=== PATIENT | male | born 2000 | race African-American/Black ===

== ENCOUNTER 2019-12-29 14:20 | Emergency (ER) | payer BC, OTHER ==
[~2019-12-29] VITALS: Ht 175.3 cm; Wt 72.0 kg
[2019-12-29] MEDS ORDERED: ONDANSETRON HCL 4MG/2ML INJ IV STA (14:35)
[2019-12-29] MEDS ORDERED: FAMOTIDINE 20MG/2ML VIAL IV STA (14:35)
[2019-12-29] MEDS ORDERED: SODIUM CHLORIDE 0.9% 1,000 ML IV ONE (14:45)
[2019-12-29 15:17] LABS: BASOPHILS % 0.3 % (0.0-2.0); EOSINOPHILS % 0.1 % (0.0-5.0); HEMATOCRIT. 48.5 % (42.0-52.0); HEMOGLOBIN. 16.7 g/dL (14.0-18.0); LYMPHOCYTES % 15.8 % (20.0-50.0); MEAN CORPUSCULAR VOLUME 90.1 fL (80.0-94.0); MONOCYTES % 10.5 % (2.0-8.0); NEUTROPHILS % 73.3 % (40.0-76.0); PLATELET 301 x1000/uL (130-400); RED BLOOD CELL COUNT 5.38 mill/uL (4.7-6.1); RED CELL DISTRIBUTION WIDTH 14.7 % (11.6-14.6)
[2019-12-29 15:26] LABS: CHLORIDE 95 mEq/L (98-107)
[2019-12-29] MEDS ORDERED: KETOROLAC 30MG/ML VIAL IV ONE (15:30)
[2019-12-29 15:35] LABS: ETHANOL BLOOD < 10 mg/dL
[2019-12-29 15:41] LABS: INR 1.1; PROTHROMBIN TIME 11.4 sec (9.6-11.0)
[2019-12-29 15:44] LABS: CLARITY URINE CLEAR (CLEAR); COLOR URINE DARK YELLOW (YELLOW); KETONES URINE 1+ (NEGATIVE); LEUKOCYTE ESTERASE URINE 1+ (NEGATIVE); NITRITE URINE NEGATIVE (NEGATIVE); OCCULT BLOOD URINE NEGATIVE (NEGATIVE); PH URINE 5.5 (4.5-8.0); PROTEIN URINE 1+ (NEGATIVE); SPECIFIC GRAVITY URINE 1.027 (1.005-1.030)
[2019-12-29 16:03] LABS: *AMPHETAMINES SCREEN URINE NEGATIVE (NEGATIVE); *BARBITURATES SCREEN URINE NEGATIVE (NEGATIVE); *BENZODIAZEPINES SCREEN URINE NEGATIVE (NEGATIVE)
[2019-12-29 16:04] LABS: *COCAINE SCREEN URINE PRESUMTIVE POSITIVE (NEGATIVE); METHADONE URINE SCREEN NEGATIVE (NEGATIVE); OPIATES URINE SCREEN NEGATIVE (NEGATIVE); PHENCYCLIDINE URINE SCREEN NEGATIVE (NEGATIVE)
[2019-12-29 16:05] LABS: CANNABINOID URINE SCREEN PRESUMTIVE POSITIVE (NEGATIVE)
[2019-12-29 18:19] VITALS: BP 128/89
== END 2019-12-29 18:19 | disposition home or self-care (01) ==
LOC: ER 14:20
DX: R11.2 Nausea with vomiting, unspecified (principal); R10.13 Epigastric pain; F14.10 Cocaine abuse, uncomplicated; F12.10 Cannabis abuse, uncomplicated; E87.8 Other disorders of electrolyte and fluid balance, not elsewhere classified; J45.909 Unspecified asthma, uncomplicated
CPT/HCPCS: 36415; 80053; 80305; 80320; 81003; 83690; 85025; 85610; 93005; 96361; 96374; 96375; 99284; J1885; J2405; J3490; J7030; G0480

== ENCOUNTER 2021-11-02 16:38 | Emergency (ER) | payer OTHER ==
[~2021-11-02] VITALS: Ht 175.3 cm; Wt 75.0 kg
[2021-11-02 16:46] VITALS: BP 126/67
== END 2021-11-02 20:46 | disposition left against medical advice (07) ==
LOC: ER 16:38
DX: Z53.21 Procedure and treatment not carried out due to patient leaving prior to being seen by health care provider (principal); J45.909 Unspecified asthma, uncomplicated

== ENCOUNTER 2022-01-19 15:40 | Emergency (ER) | payer OTHER ==
[~2022-01-19] VITALS: Ht 175.3 cm; Wt 72.0 kg
[2022-01-19 18:33] VITALS: BP 118/76
[2022-01-19] MEDS ORDERED: ACETAMINOPHEN 325MG TABLET PO STA (18:33)
[2022-01-19] MEDS ORDERED: KETOROLAC 60MG/2ML VIAL IM STA (18:33)
[2022-01-19] MEDS ORDERED: MAGNESIUM/ALUMINUM HYDROXIDE/SIMETHICONE 30ML UDC PO STA (18:33)
[2022-01-19] MEDS ORDERED: VISCOUS LIDOCAINE 2% 15 ML UDC PO STA (18:33)
[2022-01-19] MEDS ORDERED: ONDANSETRON 4MG ODT PO ONE (18:45)
[2022-01-19 19:05] LABS: CLARITY URINE CLEAR (CLEAR); COLOR URINE DARK YELLOW (YELLOW); KETONES URINE 1+ (NEGATIVE); LEUKOCYTE ESTERASE URINE 1+ (NEGATIVE); NITRITE URINE NEGATIVE (NEGATIVE); OCCULT BLOOD URINE NEGATIVE (NEGATIVE); PH URINE 6.5 (4.5-8.0); PROTEIN URINE 2+ (NEGATIVE); SPECIFIC GRAVITY URINE 1.032 (1.005-1.030)
[2022-01-19 19:10] LABS: BASOPHILS % 0.3 % (0.0-2.0); HEMATOCRIT. 44.9 % (42.0-52.0); HEMOGLOBIN. 15.3 g/dL (14.0-18.0); MEAN CORPUSCULAR HEMOGLOBIN 31.5 pg (28.0-32.0); MEAN CORPUSCULAR VOLUME 92.7 fL (80.0-94.0); MEAN PLATELET VOLUME 7.5 fl (7.4-10.4); MONOCYTES % 8.1 % (2.0-8.0); NEUTROPHILS % 80.6 % (40.0-76.0); PLATELET 456 x1000/uL (130-400); RED BLOOD CELL COUNT 4.85 mill/uL (4.7-6.1); RED CELL DISTRIBUTION WIDTH 14.8 % (11.6-14.6)
[2022-01-19 19:50] LABS: CHLORIDE 100 mEq/L (98-107)
[2022-01-19] MEDS ORDERED: FAMO-135 PO (20:28)
== END 2022-01-19 20:59 | disposition home or self-care (01) ==
LOC: ER 15:40
DX: R10.84 Generalized abdominal pain (principal); R11.2 Nausea with vomiting, unspecified; J45.909 Unspecified asthma, uncomplicated
CPT/HCPCS: 36415; 74176; 76705; 80053; 81003; 83690; 85025; 96372; 99285; J1885; Q0162

== ENCOUNTER 2023-11-29 01:11 | Emergency (ER) | payer SELFPAY ==
[~2023-11-29] VITALS: Ht 175.3 cm; Wt 67.0 kg
[~2023-11-29 01:11] MED LIST: FAMO-135 PO
[2023-11-29 01:58] LABS: BASOPHILS % 0.3 % (0.0-2.0); EOSINOPHILS % 0.4 % (0.0-5.0); HEMATOCRIT. 46.7 % (42.0-52.0); LYMPHOCYTES % 18.8 % (20.0-50.0); MEAN CORPUSCULAR HEMOGLOBIN 32.9 pg (28.0-32.0); MEAN CORPUSCULAR HGB CONC 34.2 g/dL (31.0-37.0); MEAN PLATELET VOLUME 7.9 fl (7.4-10.4); MONOCYTES % 9.4 % (2.0-8.0); NEUTROPHILS % 71.1 % (40.0-76.0); PLATELET 328 x1000/uL (130-400); RED BLOOD CELL COUNT 4.86 mill/uL (4.7-6.1); RED CELL DISTRIBUTION WIDTH 15.3 % (11.6-14.6); WHITE BLOOD COUNT 8.2 x1000/uL (4.5-11.0)
[2023-11-29 02:02] LABS: CHLORIDE 100 mEq/L (98-107); POTASSIUM 3.4 mEq/L (3.5-5.1); SODIUM 139 mEq/L (136-145)
[2023-11-29 02:03] LABS: CALCIUM 10.6 mg/dL (8.7-10.4); CARBON DIOXIDE 32 mEq/L (21-32)
[2023-11-29 02:06] VITALS: O2SAT 98
[2023-11-29 02:08] LABS: CREATININE 1.7 mg/dL (0.6-1.3); GLUCOSE 126 mg/dL (70-105); UREA NITROGEN BLOOD 13 mg/dL (9-23)
[2023-11-29 02:13] VITALS: BP 127/84; PULSE 72; RESP 20; TEMP 98.5; O2SAT 97
[2023-11-29] MEDS: KETOROLAC 30MG/ML VIAL IV NR (04:06)
[2023-11-29] MEDS: ONDANSETRON HCL 4MG/2ML INJ IV NR (04:06)
[2023-11-29] MEDS: SODIUM CHLORIDE 0.9% 1,000 ML IV ONE (04:30)
== END 2023-11-29 05:22 | disposition left against medical advice (07) ==
LOC: ER 02:04
DX: N17.9 Acute kidney failure, unspecified (principal); R10.30 Lower abdominal pain, unspecified; F41.9 Anxiety disorder, unspecified
CPT/HCPCS: 80048; 83605; 83690; 85025; 36415; 99283; J1885; J2405; Z7610 ×2

== ENCOUNTER 2024-06-23 23:09 | Emergency (ER) | payer OTHER, MEDICAID ==
[~2024-06-23] VITALS: Ht 167.6 cm; Wt 68.0 kg
[2024-06-23 23:26] VITALS: O2SAT 96
[2024-06-23 23:34] VITALS: BP 132/72; PULSE 77; RESP 18; TEMP 36.6; O2SAT 98
[2024-06-24] MEDS: FAMOTIDINE 20MG TABLET PO ONE (00:59)
[2024-06-24] MEDS: DEXAMETHASONE 10 MG/ML VIAL PO ONE (00:59)
[2024-06-24] MEDS: DIPHENHYDRAMINE 25MG CAPSULE PO ONE (00:59)
[2024-06-24] MEDS ORDERED: PRED5TAB48 MT (02:27)
== END 2024-06-24 02:44 | disposition home or self-care (01) ==
LOC: ER 23:09
DX: T78.3XXA Angioneurotic edema, initial encounter (principal); J45.909 Unspecified asthma, uncomplicated; Z79.899 Other long term (current) drug therapy; Z79.52 Long term (current) use of systemic steroids; Y92.89 Other specified places as the place of occurrence of the external cause
CPT/HCPCS: 99284; Q0163; J1100